=== PATIENT | male | born 2000 | race African-American/Black ===

== ENCOUNTER 2020-10-21 15:10 | Emergency (ER) | payer OTHER, SELFPAY ==
[2020-10-21 15:23] VITALS: BP 125/91; PULSE 69; RESP 20; TEMP 35.8; O2SAT 99
--- NOTE | 2020-10-21 15:42 | ED.GENADULT ---
HPI - General Adult General Chief complaint: Nausea/Vomiting/Diarrhea Stated complaint: vomiting Time Seen by Provider: 10/21/20 15:17 Source: patient, family and RN notes reviewed Mode of arrival: ambulatory Limitations: no limitations History of Present Illness HPI narrative: Patient is a 20-year-old male who presents to emergency department for evaluation of nausea vomiting generalized abdominal pain that began at 3 AM this morning after becoming intoxicated with friends having drank large amounts of alcohol patient does not have a history of alcohol abuse presents with his mother noting he has been unable to tolerate any p.o. intake patient on arrival appears uncomfortable but not in distress. Denies any URI symptoms diarrhea. Patient notes that he may have had a small amount of blood in his emesis Related Data Allergies Allergy/AdvReac Type Severity Reaction Status Date / Time No Known Allergies Allergy Verified 10/21/20 15:26 Review of Systems Review of Systems: All systems reviewed & are unremarkable except as noted in HPI and below PMFSH Social History Social History (Updated 10/21/20 @ 15:46 by Jae Garcia PA-C) Smoking status: Current every day smoker Exam Narrative: Exam Narrative: GENERAL: Well-appearing, well-nourished, uncomfortable and in no acute distress. HEAD: Normocephalic, atraumatic. EYES: PERRLA and EOMI. ENT: Nares clear, no rhinorrhea or epistaxis. Mucous membranes moist. CHEST: Clear to auscultation. No respiratory distress. No wheezes rales or rhonchi HEART: Regular rate and rhythm. No murmur heard. Normal peripheral pulses. ABDOMEN: Soft, mild tenderness of the abdomen, nondistended EXTREMITIES: Normal range of motion. No edema. SKIN: Warm, dry, no rash. NEURO: No focal deficits. Alert and oriented x3. PSYCH: Normal mood and affect. Course Course Emergency Course: Patient evaluated in the emergency department no high risk changes in the evaluation feeling much better at this time tolerating p.o. intake. Patient will be discharged at this time agrees to follow-up as instructed and will return if symptoms worsen Vital Signs Vital signs: Vital Signs Temperature 96.5 F L 10/21/20 15:23 Pulse Rate 69 10/21/20 15:23 Respiratory Rate 20 10/21/20 15:23 Blood Pressure 125/91 H 10/21/20 15:23 Pulse Oximetry 99 06/13/21 15:23 Temperature 96.5 F L 10/21/20 15:23 Pulse Rate 58 L 10/21/20 17:03 Respiratory Rate 18 10/21/20 17:03 Blood Pressure 129/98 H 10/21/20 17:03 Pulse Oximetry 100 10/21/20 17:03 Medical Decision Making MDM Narrative Medical decision making narrative: Patient was intoxicated evaluated in the ER for emesis which is likely secondary to intoxication he is no longer intoxicated his emesis has resolved he is feeling much better after interventions and will follow up as instructed and is tolerating p.o. intake Vital Signs Vital Signs: Vital Signs Temperature 96.5 F L 10/21/20 15:23 Pulse Rate 69 10/21/20 15:23 Respiratory Rate 20 10/21/20 15:23 Blood Pressure 125/91 H 10/21/20 15:23 Pulse Oximetry 99 10/21/20 15:23 Temperature 96.5 F L 10/21/20 15:23 Pulse Rate 58 L 10/21/20 17:03 Respiratory Rate 18 10/21/20 17:03 Blood Pressure 129/98 H 10/21/20 17:03 Pulse Oximetry 100 10/21/20 17:03 Lab Data Result diagrams: 10/21/20 16:13 10/21/20 16:13 Labs: Lab Results 10/21/20 10/21/20 10/21/20 Range/Units 16:13 16:13 16:44 WBC 11.3 H (4.5-10.0) K/mm3 RBC 5.35 (4.6-6.20) M/mm3 Hgb 17.4 (14.0-18.0) g/dL Hct 50.6 (42.0-52.0) % MCV 94.6 (80-100) fl MCH 32.5 (26-34) pg MCHC 34.4 (32-36) g/dl RDW 13.0 (11.5-14.5) % Plt Count 204 (150-375) k/mm3 MPV 10.8 H (7.4-10.4) fl Immature Gran % (Auto) 0.4 (0-0.5) % Neut % (Auto) 83.6 H (45.5-73.1) % Lymph % (Auto) 11.7 L (18.3-44.2) % [place] % (Auto) 4.1 (2.6-8.5)
[2020-10-21] MEDS: ONDANSETRON INJ 4 MG/2 ML VIAL IV PUSH (16:11)
[2020-10-21] MEDS: FAMOTIDINE 20 MG/2 ML VIAL IV PUSH (16:11)
[2020-10-21] MEDS: LORazepam INJ (*CRX) 2 MG/ML VIAL 1 MG IV PUSH (16:11)
[2020-10-21] MEDS: LACTATED RINGERS 1,000 ML 999 ML IV CONT (16:11)
[2020-10-21 16:12] VITALS: BP 138/76; PULSE 47; RESP 23; O2SAT 98
[2020-10-21 16:20] LABS: Basophils Percent Auto 0.2 % (0.2-1.2); Hematocrit 50.6 % (42.0-52.0); Hemoglobin 17.4 g/dL (14.0-18.0); Immature Granulocyte Absolute 0.04 K/mm3 (0.00-0.031); Immature Granulocyte Percent A 0.4 % (0-0.5); Lymphocytes Absolute Auto 1.32 K/mm3 (0.9-3.2); Lymphocytes Percent Auto 11.7 % (18.3-44.2); Mean Corpuscular HGB Conc 34.4 g/dl (32-36); Mean Corpuscular Hemoglobin 32.5 pg (26-34); Mean Corpuscular Volume 94.6 fl (80-100); Mean Platelet Volume 10.8 fl (7.4-10.4); Monocytes Absolute Auto 0.5 K/mm3 (0.1-0.6); Monocytes Percent Auto 4.1 % (2.6-8.5); Neutrophils Absolute Auto 9.4 K/mm3 (1.3-6.7); Neutrophils Percent Auto 83.6 % (45.5-73.1); Platelet Count Result 204 k/mm3 (150-375); Red Blood Count 5.35 M/mm3 (4.6-6.20); White Blood Count 11.3 K/mm3 (4.5-10.0)
[2020-10-21 16:30] LABS: Alanine Aminotransferase 21 U/L (4-50); Alkaline Phosphatase 81 U/L (38-126); Anion Gap 11 mmol/L (8-16); Aspartate Amino Transferase 31 U/L (17-59); Bilirubin,Total 0.9 mg/dL (0.2-1.3); Blood Urea Nitrogen 10 mg/dL (9-20); Carbon Dioxide 29 mmol/L (22-30); Chloride 104 mmol/L (98-107); Estimated CRCL calculation 116 ml/min; Estimated Glomerular Filt Rate > 60; Glucose 117 mg/dL (75-110); Lipase 105 U/L (23-300); Sodium 144 mmol/L (137-145)
[2020-10-21 16:54] LABS: Add Urine Microscopic? YES; Appearance Urine Clear (Clear); Bacteria Urine Trace /hpf; Bilirubin Urine Negative (Negative); Color Urine Yellow (Yellow); Glucose Urine UA Negative (Negative); Ketones Urine Negative (Negative); Leukocyte Esterase Ur 1+ LEU/UL (Negative); Mucus Urine Rare /lpf; Nitrate Urine Negative (Negative); Protein Urine 2+ mg/dL (Negative); Specific Grav Ur 1.025 (1.001-1.035); Squamous Epithelial Cell Urine Few /hpf (Few); WBC Urine 16-20 /hpf
[2020-10-21] MEDS: SODIUM CHLORIDE 0.9% IV 1,000 ML 999 ML IV CONT (16:56)
[2020-10-21 16:58] LABS: Blood Urine Negative (Negative)
[2020-10-21 17:03] VITALS: BP 129/98; PULSE 58; RESP 18; O2SAT 100
[2020-10-21 18:21] VITALS: BP 126/76; PULSE 64; RESP 18; O2SAT 100
== END 2020-10-21 18:24 | disposition home or self-care (01) ==
PROVIDERS: Emergency Medicine Emergency Medical Services; Emergency Provider Emergency Medicine; PCP Pediatrics
DX: R10.9 Unspecified abdominal pain (principal); F17.210 Nicotine dependence, cigarettes, uncomplicated
CPT/HCPCS: 36415; 80053; 81001; 83690; 85025; 87086; 96361; 96374; 96375; 99284; J2060; J2405; J7030; J7120

== ENCOUNTER 2021-08-11 08:46 | Emergency (ER) | payer OTHER, SELFPAY ==
[2021-08-11 08:50] VITALS: BP 129/66; PULSE 51; RESP 16; TEMP 36.4; O2SAT 100
--- NOTE | 2021-08-11 09:12 | ED.URI ---
HPI - URI/Sore Throat General Chief Complaint: Upper Respiratory Infection <RENARD Cast Last Filed: 08/11/21 10:07> Stated Complaint: sinus infection x 7 days <RENARD Cast Last Filed: 08/11/21 10:07> Time Seen by Provider: 08/11/21 08:54 <RENARD Cast Last Filed: 08/11/21 10:07> History of Present Illness HPI Narrative: Patient is a 21-year-old healthy male who presents for 7 days of clear sinus drainage, sinus pressure, and an intermittent headache over the past 2 days. Patient states the headache begins in his forehead region and wraps bilaterally around his head, but is mostly concentrated around his right eye. He has been trying Tylenol, and [id number] cold remedies with only mild relief of his headache. Denies severe headache today. He denies any visual changes, nausea, vomiting. Denies history of sinus infections. States grandmother at home is having similar symptoms. He is vaccinated against Covid and flu. Denies fevers, chest pain, shortness of breath, rashes, neck rigidity. <RENARD Cast Last Filed: 08/11/21 10:07> Related Data Allergies/Adverse Reactions: Allergies Allergy/AdvReac Type Severity Reaction Status Date / Time No Known Allergies Allergy Verified 08/11/21 08:53 <RENARD Cast Last Filed: 08/11/21 10:07> Review of Systems Review of Systems: Gen.: Denies fevers or chills Eyes: Denies eye pain or visual change ENT: Reports congestion Respiratory: Reports cough. Denies shortness of breath CV: Denies chest pain or palpitations GI: Denies abdominal pain nausea, emesis or diarrhea denies burning, urgency, frequency or hematuria Musculoskeletal: Denies back pain or muscle pain Neuro: Reports headache. Denies numbness, tingling, weakness or focal weakness Skin: Denies rash Except as documented, all other systems reviewed and negative <RENARD Cast Last Filed: 08/11/21 10:07> All systems reviewed & are unremarkable except as noted in HPI and below <Quynh Ogden PA-C - Last Filed: 08/11/21 10:07> [facility] Social History Social History: Social History (Updated 10/21/20 @ 15:46 by Jae Garcia PA-C) Smoking status: Current every day smoker <Quynh Ogden PA-C - Last Filed: 08/11/21 10:07> Exam Narrative: APPEARANCE: Well appearing, no pain in distress, well-nourished. Head normocephalic and atraumatic. EYES: PERRLA/EOMI, conjunctivae clear NOSE: Clear nasal drainage noted noted with swollen turbinates. Tenderness over bilateral sinuses, right over left. EARS: External ear normal in appearance THROAT: Oropharynx is erythematous but no exudates present. Mucous membranes are moist. NECK: Supple. No adenopathy, no masses. RESPIRATORY: Airway patent, respirations nonlabored. Clear to auscultation bilaterally, no rales, rhonchi, wheezing. CARDIOVASCULAR: Regular rate and rhythm without murmurs, rubs, or gallops. ABDOMINAL: Normoactive bowel sounds. Soft, nontender, nondistended. No rebound tenderness or guarding. MUSCULOSKELETAL: Extremities are warm and well-perfused. Moves all extremities well. No edema. NEURO: Cranial nerves II through X intact. Normal speech. No focal neurologic deficits. SKIN:: Skin is warm and dry. No rashes. PSYCHIATRIC: Normal affect/mood. <Quynh Ogden PA-C - Last Filed: 08/11/21 10:07> Course PACKING CHECKER/PA Physician Supervision Patient was seen by the DANIEL and under my direct supervision. I was available for consultation at any time. I have reviewed the chart concur with the evaluation and treatment plan. <Michoacano Perdue DO - Last Filed: 08/11/21 17:32> Vital Signs Vital signs: Vital Signs Temperature 97.6 F 08/11/21 08:50 Pulse Rate 51 L 08/11/21 08:50 Respiratory Rate 16 08/11/21 08:50 Blood Pressure 129/66 08/11/21 08:50 Pulse Oximetry 100 08/11/21 08:50 [place]
[2021-08-11] MEDS: KETOROLAC 30 MG/ML VIAL (*BKC) IM (09:22)
[2021-08-11 10:09] LABS: SARS-CoV-2 RNA PCR Negative
== END 2021-08-11 10:25 | disposition home or self-care (01) ==
PROVIDERS: Physician Assistant; Emergency Provider Emergency Medicine
DX: J01.90 Acute sinusitis, unspecified (principal); Z20.822 Contact with and (suspected) exposure to COVID-19; F17.200 Nicotine dependence, unspecified, uncomplicated
CPT/HCPCS: 87081; 87880; 96372; 99283; C9803; J1885; U0003; U0005

== ENCOUNTER 2022-01-17 10:12 | Emergency (ER) | payer OTHER, SELFPAY ==
--- NOTE | ~2022-01-17 | XR_ITS ---
EXAMINATION: XR chest 2V DATE: 01/17/2022 11:29 INDICATION: Cough and shortness of breath TECHNIQUE: PA and lateral views of the chest are obtained. COMPARISON: None available FINDINGS: The lungs are free of acute opacities. No pleural effusion or pneumothorax. The cardiomedia stinal silhouette is normal. The visualized bones and soft tissues are unremarkable. IMPRESSION: 1. No acute cardiopulmonary abnormality. Reviewed, dictated and finalized at location B.
[2022-01-17 10:24] VITALS: BP 145/77; PULSE 71; RESP 18; TEMP 36.4; O2SAT 100
--- NOTE | 2022-01-17 12:01 | ED_ITS ---
HPI - URI/Sore Throat General Chief Complaint: Upper Respiratory Infection Stated Complaint: congestion, cough Time Seen by Provider: 01/17/22 10:40 History of Present Illness HPI Narrative: 21-year-old male presents to the emergency room for evaluation of sinus congestion postnasal drip, productive cough and headache. Patient states that he has been taking ibuprofen and Mucinex DM with no relief. Denies fever, shortness of breath or difficulty breathing. Related Data Allergies Allergy/AdvReac Type Severity Reaction Status Date / Time No Known Allergies Allergy Verified 01/17/22 11:48 Review of Systems Review of Systems: CONSTITUTIONAL: Denies fever, chills, or sweats. EYES: Denies visual changes, redness, or discharge. ENT: Reports rhinorrhea and congestion CARDIOVASCULAR: Denies chest pain, palpitations, or edema. RESPIRATORY: Reports cough GASTROINTESTINAL: Denies abdominal pain, nausea, vomiting, or diarrhea. GENITOURINARY: Denies dysuria or hematuria. SKIN: Denies rash or itching. MUSCULOSKELETAL: Denies back pain, joint pain, or myalgia. NEUROLOGIC: Denies headache, numbness, dizziness, or weakness. PSYCHIATRIC: Denies anxiety or depression. [facility] Social History Social History (Updated 10/21/20 @ 15:46 by Jae Garcia, PASyedC) Smoking status: Current every day smoker Course Vital Signs Vital signs: Vital Signs Temperature 36.4 C L 01/17/22 10:24 Pulse Rate 71 01/17/22 10:24 Respiratory Rate 18 01/17/22 10:24 Blood Pressure 145/77 H 01/17/22 10:24 Pulse Oximetry 100 01/17/22 10:24 Oxygen Delivery Room Air 01/17/22 10:24 Temperature 36.4 C L 01/17/22 10:24 Pulse Rate 71 01/17/22 10:24 Respiratory Rate 18 01/17/22 10:24 Blood Pressure 145/77 H 01/17/22 10:24 Pulse Oximetry 100 01/17/22 10:24 Oxygen Delivery Room Air 01/17/22 10:24 MDM - URI/Sore Throat Lab Data Labs: Lab Results 01/17/22 Range/Units 11:33 SARS-CoV-2 RNA (RT-PCR) Pending Discharge Plan Discharge Clinical Impression: Upper respiratory infection Patient Disposition: Home, Self-Care Condition: Stable Instructions: Antibiotic Form, Viral Syndrome (ED) Prescriptions: New fluticasone propionate [Flonase Allergy Relief] 50 mcg/actuation spray,thapa spension 1 spray intranasal DAILY Qty: 16 0RF Rx Instructions: administer into each nostril prednisone 20 mg tablet 40 mg PO DAILY 5 Days Qty: 10 0RF pseudoephedrine HCl 30 mg tablet 30 mg PO Q4-6H PRN (Reason: nasal congestion) Qty: 30 0RF Rx Instructions: DNExceed 4 doses/24h No Action Flonase Sensimist 27.5 mcg/actuation spray,suspension 2 spray intranasal DAILY Qty: 5.9 0RF Rx Instructions: into each nostril Follow-up/Referrals: UNKNOWN,DOCTOR [Primary Care Provider] - Time of Disposition: 12:05
[2022-01-17 12:23] LABS: SARS-CoV-2 RNA PCR Negative
== END 2022-01-17 12:17 | disposition home or self-care (01) ==
PROVIDERS: Emergency Provider Nurse Practitioner Family
DX: J06.9 Acute upper respiratory infection, unspecified (principal); Z20.822 Contact with and (suspected) exposure to COVID-19
CPT/HCPCS: 71046; 96372; 99283; C9803; J1100; U0003; U0005